=== PATIENT | female | born 1955 | race Caucasian/White ===

== ENCOUNTER 2017-01-24 08:56 | Inpatient (IN) | payer OTHER ==
[2017-01-24] MEDS ORDERED: PROMETHAZINE HCL 25 MG/ML INJ IVP PRN (09:12)
[2017-01-24] MEDS ORDERED: LORazepam 0.5 MG TAB PO PRN (09:12)
[2017-01-24] MEDS ORDERED: diphenhydrAMINE 25 MG CAP PO PRN (09:12)
[2017-01-24] MEDS ORDERED: LORazepam 2 MG/ML INJ IVP PRN (09:12)
[2017-01-24] MEDS ORDERED: ACETAMINOPHEN 325 MG TAB PO PRN (09:12)
[2017-01-24] MEDS ORDERED: PROMETHAZINE HCL 25 MG TAB PO PRN (09:12)
[2017-01-24 09:52] LABS: % IMMATURE GRANULYOCYTES 0.3 % (0.0-1.1); ABSOLUTE IMMATURE GRANULOCYTES 0.01 10^3/uL (0.00-0.10); ADD DIFF? NO; ADD MORPH? NO; ADD SCAN? NO; ATYPICAL LYMPHOCYTE FLAG 0 (0-99); FRAGMENT RBC FLAG 0 (0-99); HEMATOCRIT 32.3 % (38.0-47.0); HEMOGLOBIN 10.8 g/dL (12.6-16.3); LEFT SHIFT FLG 10 (0-99); LIPEMIA HEMOLYSIS FLAG 80 (0-99); MEAN CELL HEMOGLOBIN CONCENTR. 33.4 g/dL (32.4-36.7); MEAN CELL VOLUME 95.6 fL (81.5-99.8); MEAN PLATELET VOLUME 9.6 fL (8.7-11.7); PLATELET CLUMPS FLAG 10 (0-99); PLATELET COUNT 188 10^3/uL (150-400); RED BLOOD CELL COUNT 3.38 10^6/uL (4.18-5.33); RED CELL DISTRIBUTION WIDTH 18.6 % (11.5-15.2)
[2017-01-24 10:38] LABS: ALANINE AMINOTRANSFERASE 34 IU/L (9-52); ALBUMIN 3.5 g/dL (3.5-5.0); ALKALINE PHOSPHATASE 70 IU/L (38-126); ANION GAP 10 mEq/L (8-16); ASPARTATE AMINOTRANSFERASE 25 IU/L (14-46); BILIRUBIN,TOTAL 0.4 mg/dL (0.1-1.4); CALCIUM 9.2 mg/dL (8.5-10.4); CARBON DIOXIDE 25 mEq/l (22-31); CHLORIDE 104 mEq/L (97-110); CREATININE 0.8 mg/dL (0.6-1.0); GLOMERULAR FILTRATION RATE > 60; GLUCOSE 79 mg/dL (70-100); LACTATE DEHYDROGENASE 425 IU/L (313-618); POTASSIUM 4.8 mEq/L (3.5-5.2); SODIUM 139 mEq/L (134-144); TOTAL PROTEIN 6.7 g/dL (6.3-8.2); URIC ACID 5.6 mg/dL (2.5-6.8)
[2017-01-24] MEDS: prednisoLONE ACET 1% 5 ML OPHT.BTL EACHEYE SCH ×4 (11:32→23:05)
--- NOTE | 2017-01-24 12:45 | GHP ---
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 She underwent induction chemotherapy with 7 and 3 using idarubicin, and went into complete remission based on her last bone marrow. FLT 3 was m utated, and she was also treated with Midostaurin. She has recovered her counts, and currently feel s well. She is admitted for her first cycle of Padmini-C consolidation therapy. She has also seen a sera mckeeer of transplanters, and an allogeneic stem cell transplant is on the table. 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 Currently, she feels quite well. PAST MEDICAL HISTORY: Generally unremarkable. REVIEW OF SYSTEMS: Generally negative except for mild fatigue. PHYSICAL EXAMINATION: GENERAL APPEARANCE: She is a very pleasant, alert female. VITAL SIGNS: Blo od pressure is 111/89. She is afebrile. Room air sat 95%. HEENT: She is not icteric. Pharynx is unremarkable. LUNGS: Clear. CARDIAC: Unremarkable. ABDOMEN: Benign. EXTREMITIES: No edema. There is an intact PICC line in her right arm. NEUROLOGIC: Nonfocal. LABORATORY DATA: White count today is 3.64, with an ANC of 2.32, hemoglobin 10.8, hematocrit 32.3, platelets are 188,000. Chemistry panel is really unremarkable. IMPRESSION: Patient with acute myelogenous leukemia, admitted for first dose of high-dose Padmini-C con solidation. She will receive 3 g/m sq of Padmini-C over 3 hours every 12 day 1, 3, and 5. Steroid eyed rops will be administered. I discussed possible cerebellar toxicity with her, and we will continue to watch for that. /[id number]/MODL
[2017-01-24] MEDS ORDERED: DEXAMETHASONE SOD PHOSPHATE IV SCH (13:30)
[2017-01-24] MEDS ORDERED: ONDANSETRON HCL IV SCH (13:30)
[2017-01-24] MEDS ORDERED: NS IV SCH ×2 (13:30→14:00)
[2017-01-24] MEDS ORDERED: CYTARABINE IV SCH (14:00)
[2017-01-24] MEDS ORDERED: MBX SOLN 30 ML BOTTLE PO PRN (15:01)
--- NOTE | 2017-01-24 15:11 | PDGENHP ---
History and Physical - Chief Complaint Presenting for inpatient chemotherapy - History of Present Illness Primary oncologist: Dr. Castanon HPI: 61-year-old female presenting for inpatient chemotherapy, Padmini-c consolidation for AML. She is presently denying any symptoms, but she does report that she did have onset edema located in the bilateral lower extremities during her previous chemotherapy cycle and this has been of persistent, low- grade duration since that time. She also reports some discomfort located in her throat during her last cycle which was attributed to esophageal Maricruz, and was alleviated with Magic mouthwash. She otherwise has not been experiencing any recent malignancy associated complications. 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 c/b neutropenic fever - Surgical History Reports: no pertinent surgical hx - Family History Additional family history: neither parent w/ hematologic malignancy, no recent sick family contacts - Social History Smoking Status: Former smoker Alcohol Use: Occasionally Drug Use: None Additional social history: independent ADLs Review of Systems ROS: 10pt was reviewed & negative except for what was stated in HPI & below Cardiac: Reports: edema Physical Exam Temp Pulse Resp BP Pulse Ox 36.5 C 89 16 111/89 H 95 01/24/17 11:16 01/24/17 09:10 01/24/17 09:10 01/24/17 09:10 01/24/17 09:10 Constitutional: no apparent distress, appears nourished, not in pain, chronically ill appearing Eyes: PERRL, anicteric sclera, EOMI Ears, Nose, Mouth, Throat: moist mucous membranes, hearing normal, ears appear normal, no oral mucosal ulcers Cardiovascular: regular rate and rhythym, no murmur, rub, or gallop, edema ( trace bilat LE) Respiratory: no respiratory distress, no rales or rhonchi, clear to auscultation Gastrointestinal: normoactive bowel sounds, soft, non-tender abdomen, no palpable masses Skin: warm, normal color, no rashes or abrasions, no fluctuance, no induration, No mottled Neurologic: AAOx3, sensation intact bilaterally, No weakness Psychiatric: interacting appropriately, not anxious, not encephalopathic, thought process linear Lab Data & Imaging Review 01/24/17 09:40 01/24/17 09:40 WBC 3.64 10^3/uL (3.80-9.50) L 01/24/17 09:40 RBC 3.38 10^6/uL (4.18-5.33) L 01/24/17 09:40 Hgb 10.8 g/dL (12.6-16.3) L 01/24/17 09:40 Hct 32.3 % (38.0-47.0) L 01/24/17 09:40 MCV 95.6 fL (81.5-99.8) 01/24/17 09:40 MCH 32.0 pg (27.9-34.1) 01/24/17 09:40 MCHC 33.4 g/dL (32.4-36.7) 01/24/17 09:40 RDW 18.6 % (11.5-15.2) H 01/24/17 09:40 Plt Count 188 10^3/uL (150-400) 01/24/17 09:40 MPV 9.6 fL (8.7-11.7) 01/24/17 09:40 Neut % (Auto) 63.7 % (39.3-74.2) 01/24/17 09:40 Lymph % (Auto) 16.2 % (15.0-45.0) 01/24/17 09:40 [place] % (Auto) 15.7 % (4.5-13.0) H 01/24/17 09:40 Eos % (Auto) 3.3 % (0.6-7.6) 01/24/17 09:40 Baso % (Auto) 0.8 % (0.3-1.7) 01/24/17 09:40 Nucleat RBC Rel Count 0.0 % (0.0-0.2) 01/24/17 09:40 Absolute Neuts (auto) 2.32 10^3/uL (1.70-6.50) 01/24/17 09:40 Absolute Lymphs (auto) 0.59 10^3/uL (1.00-3.00) L 01/24/17 09:40 Absolute Monos (auto) 0.57 10^3/uL (0.30-0.80) 01/24/17 09:40 Absolute Eos (auto) 0.12 10^3/uL (0.03-0.40) 01/24/17 09:40 Absolute Basos (auto) 0.03 10^3/uL (0.02-0.10) 01/24/17 09:40 Absolute Nucleated RBC 0.00 10^3/uL (0-0.01) 01/24/17 09:40 Immature Gran % 0.3 % (0.0-1.1) 01/24/17 09:40 Immature Gran # 0.01 10^3/uL (0.00-0.10) 01/24/17 09:40 Sodium 139 mEq/L (134-144) 01/24/17 09:40 Potassium 4.8 mEq/L (3.5-5.2) 01/24/17 09:40 Chloride 104 mEq/L (97-110) 01/24/17 09:40 Carbon Dioxide 25 mEq/l (22-31) 01/24/17 09:40 Anion Gap 10 mEq/L (8-16) 01/24/17 09:40 BUN 17 mg/dL (7-23) 01/24/17 09:40 Creatinine 0.8 mg/dL (0.6-1.0) 01/24/17 09:40 Estimated GFR > 60 01/24/17 09:40 Glucose 79 mg/dL (70-100) 01/24/17 09:40 Uric Acid 5.6 mg/dL (2.5-6.8) 01/24/17 09:40 Calcium 9.2 mg/dL (8.5-10.4) 01/24/17 09:40 Phosphorus 4.4 mg/dL (2.5-4.5) 01/24/17 09:40 Magnesium 2.0 mg/dL (1.6-2.3) 01/24/17 09:40 Total Bilirubin 0.4 mg/dL (0.1-1.4) 01/24/17 09:40 AST 25 IU/L (14-46) 01/24/17 09:40 ALT 34 IU/L (9-52) 01/24/17 09:40 Alkaline Phosphatase 70 IU/L (38-126) 01/24/17 09:40 Lactate Dehydrogenase 425 IU/L (313-618) 01/24/17 09:40 Total Protein 6.7 g/dL (6.3-8.2) 01/24/17 09:40 Albumin 3.5 g/dL (3.5-5.0) 01/24/17 09:40 Assessment & Plan Assessment: 61 yo F w/ AML presents for consolidation chemotherapy Plan: 1. AML. New problem to this provider, further w/u indicated. Presenting for Padmini- C consolidation prior to stem cell transplant - reviewed outside records including clinic note by Dr. Wolf Castanon 01/20/17 outlining patient's AML tx hx and plan of care - get pre-chemo labs w/ CMP/LDH/Uric Acid - d/w Dr. Menezes, he reports he has written chemo orders, will get high dose cytarabine bid on days 1,3,5 w/ PO midostaurin days 8-21 - magic mouthwash PRN - monitor LE edema while on IVF/steroids - ISS 2. Pancytopenia 2/2 chemotherapy. Hgb 10.8, WBC 3,1, Plts 310, repeat prior to starting tx and monitor Diet. Regular PPx. High risk, on lovenox 40 Code. Full Dispo. ADD s/p IV cytarabine infusion complete, anticipated LOS > 48hrs warranting inpatient admission for inpt chemo.
[2017-01-25] MEDS ORDERED: NS IV SCH (02:00)
[2017-01-25] MEDS ORDERED: CYTARABINE IV SCH (02:00)
[2017-01-25] MEDS: prednisoLONE ACET 1% 5 ML OPHT.BTL EACHEYE SCH ×4 (05:59→23:20)
[2017-01-25 06:11] LABS: % IMMATURE GRANULYOCYTES 0.5 % (0.0-1.1); ABSOLUTE IMMATURE GRANULOCYTES 0.03 10^3/uL (0.00-0.10); ADD DIFF? NO; ADD MORPH? NO; ADD SCAN? NO; ATYPICAL LYMPHOCYTE FLAG 0 (0-99); FRAGMENT RBC FLAG 0 (0-99); HEMATOCRIT 31.1 % (38.0-47.0); HEMOGLOBIN 10.4 g/dL (12.6-16.3); LEFT SHIFT FLG 10 (0-99); LIPEMIA HEMOLYSIS FLAG 80 (0-99); MEAN CELL HEMOGLOBIN 32.2 pg (27.9-34.1); MEAN CELL HEMOGLOBIN CONCENTR. 33.4 g/dL (32.4-36.7); MEAN CELL VOLUME 96.3 fL (81.5-99.8); MEAN PLATELET VOLUME 9.4 fL (8.7-11.7); PLATELET CLUMPS FLAG 0 (0-99); PLATELET COUNT 178 10^3/uL (150-400); RED BLOOD CELL COUNT 3.23 10^6/uL (4.18-5.33)
[2017-01-25 06:20] LABS: ALANINE AMINOTRANSFERASE 37 IU/L (9-52); ALBUMIN 3.4 g/dL (3.5-5.0); ALKALINE PHOSPHATASE 65 IU/L (38-126); ANION GAP 8 mEq/L (8-16); ASPARTATE AMINOTRANSFERASE 21 IU/L (14-46); BILIRUBIN,TOTAL 0.6 mg/dL (0.1-1.4); CALCIUM 9.1 mg/dL (8.5-10.4); CARBON DIOXIDE 23 mEq/l (22-31); CHLORIDE 110 mEq/L (97-110); CREATININE 0.7 mg/dL (0.6-1.0); GLOMERULAR FILTRATION RATE > 60; GLUCOSE 104 mg/dL (70-100); POTASSIUM 4.4 mEq/L (3.5-5.2); SODIUM 141 mEq/L (134-144); TOTAL PROTEIN 6.3 g/dL (6.3-8.2)
--- NOTE | 2017-01-25 08:53 | HOSPPROG ---
Hospitalist Progress Note Assessment/Plan: # AML FLT3+ s/p 7+3 induction at [facility] (c/b febrile neutropenia) - consolidation chemo - monitor for complications (LE edema on induction) - plans bone marrow xplant post consolidation Subjective: mild indigestion; discussed treatment options and bone marrow xplant Objective: Vital Signs Temp Pulse Resp BP Pulse Ox 36.6 C 69 16 99/65 L 92 01/25/17 05:58 01/25/17 05:58 01/25/17 05:58 01/25/17 05:58 01/25/17 05:58 Laboratory Results 01/25/17 06:00 01/25/17 06:00 01/24/17 01/25/17 01/26/17 05:59 05:59 05:59 Intake Total 865 Balance 865 chart reviewed - Time Spent With Patient Time Spent with Patient: greater than 35 minutes Time Spent with Patient: Greater than 35 minutes spent on this patients care, greater than 50% of time spent counseling, educating, and coordinating care regarding the above mentioned plan. - Physical Exam Constitutional: no apparent distress, appears nourished Cardiovascular: regular rate and rhythym, no murmur, rub, or gallop, systolic murmur Respiratory: no respiratory distress, no rales or rhonchi, clear to auscultation Gastrointestinal: normoactive bowel sounds, soft, non-tender abdomen, no palpable masses ICD10 Worksheet Patient Problems: Problems Problem Status Onset AML (acute myeloblastic leukemia) Acute
[2017-01-25] MEDS ORDERED: Herbals/Supplements -Info Only PO SCH (09:00)
[2017-01-25] MEDS: PANTOPRAZOLE SODIUM 40 MG TAB PO SCH (09:21)
[2017-01-25] MEDS: ENOXAPARIN 40 MG/0.4 ML SYR SC SCH (09:21)
--- NOTE | 2017-01-25 11:03 | SOAPPROG ---
SOAP Progress Note Assessment/Plan: Assessment: 1. AML, flt 3 pos, receiving HDAC consolidation Plan:Continue with chemo, will start midostaurin day 8 through 21 01/25/17 11:01 Subjective: Feels well Objective: Vital Signs Temp Pulse Resp BP Pulse Ox 98.2 F 75 16 112/70 96 01/25/17 09:03 01/25/17 09:03 01/25/17 09:03 01/25/17 09:03 01/25/17 09:03 Laboratory Results 01/25/17 06:00 01/25/17 06:00 01/24/17 01/25/17 01/26/17 05:59 05:59 05:59 Intake Total 865 Balance 865 Physical Exam - Physical Exam General Appearance: alert, no apparent distress Respiratory: lungs clear, normal breath sounds Cardiac/Chest: regular rate, rhythm Abdomen: normal bowel sounds, non-tender ICD10 Worksheet Patient Problems: Problems Problem Status Onset AML (acute myeloblastic leukemia) Acute
[2017-01-26] MEDS: prednisoLONE ACET 1% 5 ML OPHT.BTL EACHEYE SCH ×3 (05:54→18:13)
[2017-01-26 06:09] LABS: % IMMATURE GRANULYOCYTES 0.3 % (0.0-1.1); ABSOLUTE IMMATURE GRANULOCYTES 0.01 10^3/uL (0.00-0.10); ADD DIFF? NO; ADD MORPH? NO; ADD SCAN? NO; ATYPICAL LYMPHOCYTE FLAG 0 (0-99); FRAGMENT RBC FLAG 0 (0-99); HEMATOCRIT 29.7 % (38.0-47.0); HEMOGLOBIN 9.8 g/dL (12.6-16.3); LEFT SHIFT FLG 10 (0-99); LIPEMIA HEMOLYSIS FLAG 80 (0-99); MEAN CELL HEMOGLOBIN 32.1 pg (27.9-34.1); MEAN CELL VOLUME 97.4 fL (81.5-99.8); MEAN PLATELET VOLUME 9.4 fL (8.7-11.7); PLATELET CLUMPS FLAG 10 (0-99); PLATELET COUNT 158 10^3/uL (150-400); RED BLOOD CELL COUNT 3.05 10^6/uL (4.18-5.33); RED CELL DISTRIBUTION WIDTH 18.6 % (11.5-15.2)
[2017-01-26 06:31] LABS: ALANINE AMINOTRANSFERASE 34 IU/L (9-52); ALBUMIN 3.2 g/dL (3.5-5.0); ALKALINE PHOSPHATASE 60 IU/L (38-126); ANION GAP 10 mEq/L (8-16); ASPARTATE AMINOTRANSFERASE 24 IU/L (14-46); BILIRUBIN,TOTAL 0.7 mg/dL (0.1-1.4); CALCIUM 8.6 mg/dL (8.5-10.4); CARBON DIOXIDE 23 mEq/l (22-31); CHLORIDE 110 mEq/L (97-110); CREATININE 0.7 mg/dL (0.6-1.0); GLOMERULAR FILTRATION RATE > 60; GLUCOSE 83 mg/dL (70-100); POTASSIUM 4.2 mEq/L (3.5-5.2); SODIUM 143 mEq/L (134-144); TOTAL PROTEIN 5.9 g/dL (6.3-8.2)
[2017-01-26] MEDS: ENOXAPARIN 40 MG/0.4 ML SYR SC SCH (08:57)
[2017-01-26] MEDS: PANTOPRAZOLE SODIUM 40 MG TAB PO SCH (08:57)
[2017-01-26] MEDS ORDERED: NS IV ONE (09:30)
[2017-01-26] MEDS ORDERED: ONDANSETRON HCL IV ONE (09:30)
[2017-01-26] MEDS ORDERED: DEXAMETHASONE SOD PHOSPHATE IV ONE (09:30)
--- NOTE | 2017-01-26 10:35 | SOAPPROG ---
SOAP Progress Note Assessment/Plan: Assessment: 1. AML, flt 3 pos, receiving HDAC consolidation Plan:Continue with chemo, will start midostaurin day 8 through 21 01/25/17 11:01 Subjective: Feels well without complaints Objective: Vital Signs Temp Pulse Resp BP Pulse Ox 97.5 F 69 18 110/80 96 01/26/17 07:35 01/26/17 07:35 01/26/17 07:35 01/26/17 07:35 01/26/17 07:35 Laboratory Results 01/26/17 05:45 01/26/17 05:45 01/25/17 01/26/17 01/27/17 05:59 05:59 05:59 Intake Total 865 800 Balance 865 800 Physical Exam - Physical Exam General Appearance: alert, no apparent distress Respiratory: lungs clear Cardiac/Chest: regular rate, rhythm Abdomen: normal bowel sounds, non-tender ICD10 Worksheet Patient Problems: Problems Problem Status Onset AML (acute myeloblastic leukemia) Acute
[2017-01-26] MEDS: CYTARABINE IV SCH ×2 (11:08→21:58)
[2017-01-26] MEDS: NS IV SCH ×2 (11:08→21:58)
--- NOTE | 2017-01-26 11:29 | HOSPPROG ---
Hospitalist Progress Note Assessment/Plan: # AML FLT3+ s/p 7+3 induction at [facility] (c/b febrile neutropenia) - consolidation chemo - monitor for complications (LE edema on induction) - plans bone marrow xplant post consolidation - chemo to end Tuesday night; if still feeling well would like to dc late Tuesday (scheduled to complete around 8pm) Subjective: no complaints; no N/V/D/SOB Objective: Vital Signs Temp Pulse Resp BP Pulse Ox 36.4 C 69 18 110/80 96 01/26/17 07:35 01/26/17 07:35 01/26/17 07:35 01/26/17 07:35 01/26/17 07:35 Laboratory Results 01/26/17 05:45 01/26/17 05:45 01/25/17 01/26/17 01/27/17 05:59 05:59 05:59 Intake Total 865 800 Balance 865 800 - Physical Exam Constitutional: no apparent distress, appears nourished Cardiovascular: regular rate and rhythym, no murmur, rub, or gallop Respiratory: no respiratory distress, no rales or rhonchi, clear to auscultation Gastrointestinal: normoactive bowel sounds, soft, non-tender abdomen, no palpable masses ICD10 Worksheet Patient Problems: Problems Problem Status Onset AML (acute myeloblastic leukemia) Acute
[2017-01-27] MEDS: prednisoLONE ACET 1% 5 ML OPHT.BTL EACHEYE SCH ×5 (00:31→23:55)
[2017-01-27 06:15] LABS: % IMMATURE GRANULYOCYTES 0.2 % (0.0-1.1); ABSOLUTE IMMATURE GRANULOCYTES 0.01 10^3/uL (0.00-0.10); ADD DIFF? NO; ADD MORPH? NO; ADD SCAN? NO; ATYPICAL LYMPHOCYTE FLAG 0 (0-99); FRAGMENT RBC FLAG 0 (0-99); HEMATOCRIT 29.1 % (38.0-47.0); HEMOGLOBIN 9.6 g/dL (12.6-16.3); LEFT SHIFT FLG 10 (0-99); LIPEMIA HEMOLYSIS FLAG 80 (0-99); MEAN CELL HEMOGLOBIN 31.8 pg (27.9-34.1); MEAN CELL VOLUME 96.4 fL (81.5-99.8); MEAN PLATELET VOLUME 9.8 fL (8.7-11.7); PLATELET CLUMPS FLAG 0 (0-99); PLATELET COUNT 151 10^3/uL (150-400); RED BLOOD CELL COUNT 3.02 10^6/uL (4.18-5.33); RED CELL DISTRIBUTION WIDTH 17.9 % (11.5-15.2)
[2017-01-27 06:44] LABS: ALANINE AMINOTRANSFERASE 36 IU/L (9-52); ALBUMIN 3.4 g/dL (3.5-5.0); ALKALINE PHOSPHATASE 61 IU/L (38-126); ANION GAP 10 mEq/L (8-16); ASPARTATE AMINOTRANSFERASE 20 IU/L (14-46); BILIRUBIN,TOTAL 0.8 mg/dL (0.1-1.4); CARBON DIOXIDE 23 mEq/l (22-31); CHLORIDE 108 mEq/L (97-110); CREATININE 0.7 mg/dL (0.6-1.0); GLOMERULAR FILTRATION RATE > 60; GLUCOSE 95 mg/dL (70-100); POTASSIUM 4.3 mEq/L (3.5-5.2); SODIUM 141 mEq/L (134-144); TOTAL PROTEIN 6.2 g/dL (6.3-8.2)
[2017-01-27] MEDS: PANTOPRAZOLE SODIUM 40 MG TAB PO SCH (08:22)
[2017-01-27] MEDS: ENOXAPARIN 40 MG/0.4 ML SYR SC SCH (08:28)
--- NOTE | 2017-01-27 10:59 | HOSPPROG ---
Hospitalist Progress Note Assessment/Plan: # AML FLT3+ s/p 7+3 induction at [facility] (c/b febrile neutropenia) - consolidation chemo - monitor for complications (LE edema on induction) - plans bone marrow xplant post consolidation - chemo to end Tuesday night; if still feeling well would like to dc late Tuesday (scheduled to complete around 8pm) - needs an RX for zofran on discharge Subjective: no complaintes today; no diarrhea Objective: Vital Signs Temp Pulse Resp BP Pulse Ox 35.8 C L 73 18 108/81 H 96 01/27/17 08:36 01/27/17 08:36 01/27/17 08:36 01/27/17 08:36 01/27/17 08:36 Laboratory Results 01/27/17 06:00 01/27/17 06:00 01/26/17 01/27/17 01/28/17 05:59 05:59 05:59 Intake Total 800 1993 Balance 800 1993 - Physical Exam Constitutional: no apparent distress, appears nourished Cardiovascular: regular rate and rhythym, no murmur, rub, or gallop Respiratory: no respiratory distress, no rales or rhonchi, clear to auscultation ICD10 Worksheet Patient Problems: Problems Problem Status Onset AML (acute myeloblastic leukemia) Acute
--- NOTE | 2017-01-27 11:23 | SOAPPROG ---
SOAP Progress Note Assessment/Plan: Assessment: 1. AML, flt 3 pos, receiving HDAC consolidation Plan:Continue with chemo, will start midostaurin day 8 through 21 01/25/17 11:01 Subjective: Feels well Objective: Vital Signs Temp Pulse Resp BP Pulse Ox 96.5 F L 73 18 108/81 H 96 01/27/17 08:36 01/27/17 08:36 01/27/17 08:36 01/27/17 08:36 01/27/17 08:36 Laboratory Results 01/27/17 06:00 01/27/17 06:00 01/26/17 01/27/17 01/28/17 05:59 05:59 05:59 Intake Total 800 1993 Balance 800 1993 Physical Exam - Physical Exam General Appearance: alert, no apparent distress Respiratory: lungs clear Cardiac/Chest: regular rate, rhythm Abdomen: normal bowel sounds, non-tender ICD10 Worksheet Patient Problems: Problems Problem Status Onset AML (acute myeloblastic leukemia) Acute
[2017-01-28] MEDS ORDERED: ONDANSETRON HCL IV ONE (05:30)
[2017-01-28] MEDS ORDERED: DEXAMETHASONE SOD PHOSPHATE IV ONE (05:30)
[2017-01-28] MEDS: prednisoLONE ACET 1% 5 ML OPHT.BTL EACHEYE SCH ×3 (05:30→18:24)
[2017-01-28] MEDS ORDERED: NS IV ONE (05:30)
[2017-01-28 05:33] LABS: ADD DIFF? NO; ADD MORPH? NO; ADD SCAN? NO; ATYPICAL LYMPHOCYTE FLAG 0 (0-99); FRAGMENT RBC FLAG 0 (0-99); HEMATOCRIT 28.4 % (38.0-47.0); HEMOGLOBIN 9.5 g/dL (12.6-16.3); LEFT SHIFT FLG 10 (0-99); LIPEMIA HEMOLYSIS FLAG 80 (0-99); MEAN CELL HEMOGLOBIN 32.1 pg (27.9-34.1); MEAN CELL HEMOGLOBIN CONCENTR. 33.5 g/dL (32.4-36.7); MEAN CELL VOLUME 95.9 fL (81.5-99.8); MEAN PLATELET VOLUME 9.2 fL (8.7-11.7); PLATELET CLUMPS FLAG 0 (0-99); PLATELET COUNT 120 10^3/uL (150-400); RED BLOOD CELL COUNT 2.96 10^6/uL (4.18-5.33); RED CELL DISTRIBUTION WIDTH 18.1 % (11.5-15.2)
[2017-01-28] MEDS: CYTARABINE IV SCH ×2 (05:33→17:57)
[2017-01-28] MEDS: NS IV SCH ×2 (05:33→17:57)
[2017-01-28 05:52] LABS: ALANINE AMINOTRANSFERASE 44 IU/L (9-52); ALBUMIN 3.1 g/dL (3.5-5.0); ALKALINE PHOSPHATASE 57 IU/L (38-126); ANION GAP 7 mEq/L (8-16); ASPARTATE AMINOTRANSFERASE 24 IU/L (14-46); BILIRUBIN,TOTAL 0.9 mg/dL (0.1-1.4); CALCIUM 8.9 mg/dL (8.5-10.4); CARBON DIOXIDE 25 mEq/l (22-31); CHLORIDE 107 mEq/L (97-110); CREATININE 0.8 mg/dL (0.6-1.0); GLOMERULAR FILTRATION RATE > 60; GLUCOSE 81 mg/dL (70-100); POTASSIUM 4.1 mEq/L (3.5-5.2); SODIUM 139 mEq/L (134-144); TOTAL PROTEIN 5.9 g/dL (6.3-8.2)
[2017-01-28] MEDS: ENOXAPARIN 40 MG/0.4 ML SYR SC SCH (07:59)
[2017-01-28 09:10] VITALS: O2SAT 94
[2017-01-28] MEDS: PANTOPRAZOLE SODIUM 40 MG TAB PO SCH (09:27)
--- NOTE | 2017-01-28 12:22 | SOAPPROG ---
SOAP Progress Note Assessment/Plan: Assessment: 1. AML, flt 3 pos, receiving HDAC consolidation Plan:Finish chemo today, will start midostaurin day 8 through 21, follow up office next week, will need ondansetron rx on d/c 01/25/17 11:01 01/28/17 12:21 Subjective: A bit more fatigued Objective: Vital Signs Temp Pulse Resp BP Pulse Ox 98.0 F 75 16 127/79 H 94 01/28/17 08:00 01/28/17 08:00 01/28/17 08:00 01/28/17 08:00 01/28/17 08:00 Laboratory Results 01/28/17 05:00 01/28/17 05:00 01/27/17 01/28/17 01/29/17 05:59 05:59 05:59 Intake Total 1993 165 Output Total 3 Balance 1993 1647 Physical Exam - Physical Exam General Appearance: alert, no apparent distress Respiratory: lungs clear, normal breath sounds Cardiac/Chest: regular rate, rhythm Abdomen: normal bowel sounds, non-tender ICD10 Worksheet Patient Problems: Problems Problem Status Onset AML (acute myeloblastic leukemia) Acute
[2017-01-28 16:38] VITALS: TEMP 98.4
--- NOTE | 2017-01-28 18:25 | GDS ---
[f rep st] DISCHARGE SUMMARY DISCHARGE DIAGNOSES: 1. Acute myelogenous leukemia. 2. Pancytopenia secondary to chemotherapy, chronic and stable. CONSULTANTS: Dr. Mati Menezes, Oncology. HISTORY: For details, please see dictated History and Physical dated January 24. In brief, the davi parks is a 61-year-old female with a history of acute myelogenous leukemia, who is admitted to the [facility] for inpatient chemotherapy. HOSPITAL COURSE: The patient was admitted to the Cancer Care Unit. She received her 1st dose of hi gh-dose Padmini-C consolidation. Steroid eye drops were administered. Oncology consulted and managed er chemotherapy, and reviewed the possibility of cerebellar toxicity with her. She currently is doi ng well. She will receive her final dose of chemotherapy today, and will be discharged home in stab le condition with a prescription for Zofran for p.r.n. nausea. She will follow up with her outpatie nt oncologist, Dr. Castanon. DISPOSITION: Patient is discharged home in stable condition. FOLLOWUP: Dr. Wolf Castanon, at [facility]. DISCHARGE MEDICATIONS: Please see [facility] for complete updated outpatient medication list. New me dications on discharge include Zofran 4 mg p.o. q.4 hours #30, no refills. /[id number]/MODL
[2017-01-28 20:09] VITALS: BP 104/67; PULSE 91; RESP 18
== END 2017-01-28 21:10 | disposition home or self-care (01) | DRG 846 ==
LOC: F1N 08:56 → OBSVTOIN 09:14
PROVIDERS: ADMIT Internal Medicine; ATTEND Internal Medicine
DX: Z51.11 Encounter for antineoplastic chemotherapy (principal); C92.90 Myeloid leukemia, unspecified, not having achieved remission; D61.810 Antineoplastic chemotherapy induced pancytopenia
CPT/HCPCS: 97161-GP; J1100; J1650; J2405; J9100

== ENCOUNTER → 2017-02-03 | Outpatient (CLI) | payer OTHER ==
[~2017-02-03] MED LIST: ACETAMINOPHEN 325 MG TAB PO ONE; MIDOSTAURIN 25 MG PO ONE; PROCHLORPERAZINE MALEATE 10 MG TAB PO ONE; diphenhydrAMINE 25 MG CAP PO ONE
== END ==
LOC: FOBOP 17:35
PROVIDERS: ATTEND Internal Medicine Hematology & Oncology
PROC: 30233R1 Transfusion of Nonautologous Platelets into Peripheral Vein, Percutaneous Approach (ICD-10-PCS; principal; 2017-02-03)
PROC: 30233N1 Transfusion of Nonautologous Red Blood Cells into Peripheral Vein, Percutaneous Approach (ICD-10-PCS; principal; 2017-02-03)
DX: C92.90 Myeloid leukemia, unspecified, not having achieved remission (principal)
CPT/HCPCS: 36430; P9016; P9037; P9040; 99001-90

== ENCOUNTER → 2017-02-10 | Outpatient (CLI) | payer OTHER | END | disposition home or self-care (01) | LOC: FOBOP 17:56 | PROVIDERS: ATTEND Internal Medicine Hematology & Oncology | PROC: 30233R1 Transfusion of Nonautologous Platelets into Peripheral Vein, Percutaneous Approach (ICD-10-PCS; principal; 2017-02-10) | DX: C92.00 Acute myeloblastic leukemia, not having achieved remission (principal) | CPT/HCPCS: 36430; P9037 ==

== ENCOUNTER 2017-02-16 16:26 | Outpatient (CLI) | payer OTHER ==
[2017-02-16] MEDS ORDERED: diphenhydrAMINE 25 MG CAP PO ONE (17:00)
[2017-02-16] MEDS ORDERED: ACETAMINOPHEN 325 MG TAB PO ONE (17:00)
== END 2017-02-16 20:00 | disposition home or self-care (01) ==
LOC: FOBOP 16:26
PROVIDERS: ATTEND Internal Medicine Hematology & Oncology
PROC: 30233N1 Transfusion of Nonautologous Red Blood Cells into Peripheral Vein, Percutaneous Approach (ICD-10-PCS; principal; 2017-02-16)
DX: C92.00 Acute myeloblastic leukemia, not having achieved remission (principal)
CPT/HCPCS: 36430; P9016; P9040

== ENCOUNTER → 2017-12-13 | Outpatient (CLI) | payer OTHER | LOC: CIMAGING 09:59 | PROVIDERS: ATTEND Physician Assistant Medical | DX: Z12.31 Encounter for screening mammogram for malignant neoplasm of breast (principal) ==